=== PATIENT | male | born 1980 | race Hispanic/Latino ===

== ENCOUNTER 2016-09-19 14:54 | Emergency (ER) | payer OTHER ==
[~2016-09-19] VITALS: Ht 180.3 cm; Wt 110.0 kg
[2016-09-19 16:25] VITALS: BP 141/84
== END 2016-09-19 16:25 | disposition home or self-care (01) | DRG 605 ==
LOC: ED 14:54
DX: S81.852A Open bite, left lower leg, initial encounter (principal); W54.0XXA Bitten by dog, initial encounter; Y93.89 Activity, other specified; Y92.89 Other specified places as the place of occurrence of the external cause; Y99.0 Civilian activity done for income or pay